=== PATIENT | male | born 1985 | race Caucasian/White ===

== ENCOUNTER 2017-04-03 21:06 | Emergency (ER) | payer OTHER ==
[2017-04-03] MEDS ORDERED: Ketorolac Tromethamine 30 MG/ML VIAL ONE (21:22)
== END 2017-04-03 21:40 | disposition home or self-care (01) ==
LOC: SCSER 21:06
DX: K08.89 Other specified disorders of teeth and supporting structures (principal); F17.220 Nicotine dependence, chewing tobacco, uncomplicated
CPT/HCPCS: 96372; J1885